=== PATIENT | female | born 1980 | race Caucasian/White ===

== ENCOUNTER → 2017-11-12 12:10 | Outpatient (CLI) | payer OTHER, SELFPAY ==
--- NOTE | 2017-11-12 12:14 | US_ITS ---
STUDY: ULTRASOUND OF THE FEMALE PELVIS - COMPLETE REASON FOR EXAM: Female, 36 years old. Abnormal bleeding. LMP: October 20, 2017 TECHNIQUE: Transabdominal and Transvaginal. TECHNICAL QUALITY: Adequate. COMPARISON: None. FINDINGS: The uterus is anteverted and is in a midline position. The uterus measures 8.2 x 4.2 x 3.2 cm. There is a Nabothian cyst of the cervix. The endometrium measures 2 mm in thickness, and is hyperechoic. There is no demonstrated endometrial mass. There is no demonstrated myometrial mass. I.U.D. - The patient does have an I.U.D., located within the endometrium The right ovary is visualized. The right ovary measures 2.4 x 1.6 x 1.4 cm. There is no right ovarian cyst or ovarian mass. There is no visualized right adnexal mass or complex lesion. There is normal arterial and normal venous vascularity. The left ovary is visualized. The left ovary measures 2.4 x 2.3 x 1.3 cm. There is 1.8 cm paraovarian cyst. There is no visualized left adnexal mass or complex lesion. There is normal arterial and normal venous vascularity. There is mild fluid in the cul-de-sac. The pre void volume of the bladder was 254 ml. US/Pelvic (Non ) IMPRESSION: Paraovarian cyst on the left. IUD in the uterus. Electronically Signed: William Currie MD at 18:16 EDT , Service support ,
--- NOTE | 2017-11-12 12:24 | US_ITS ---
STUDY: ULTRASOUND OF THE FEMALE PELVIS - COMPLETE REASON FOR EXAM: Female, 36 years old. Abnormal bleeding. LMP: October 20, 2017 TECHNIQUE: Transabdominal and Transvaginal. TECHNICAL QUALITY: Adequate. COMPARISON: None. FINDINGS: The uterus is anteverted and is in a midline position. The uterus measures 8.2 x 4.2 x 3.2 cm. There is a Nabothian cyst of the cervix. The endometrium measures 2 mm in thickness, and is hyperechoic. There is no demonstrated endometrial mass. There is no demonstrated myometrial mass. I.U.D. - The patient does have an I.U.D., located within the endometrium The right ovary is visualized. The right ovary measures 2.4 x 1.6 x 1.4 cm. There is no right ovarian cyst or ovarian mass. There is no visualized right adnexal mass or complex lesion. There is normal arterial and normal venous vascularity. The left ovary is visualized. The left ovary measures 2.4 x 2.3 x 1.3 cm. There is 1.8 cm paraovarian cyst. There is no visualized left adnexal mass or complex lesion. There is normal arterial and normal venous vascularity. There is mild fluid in the cul-de-sac. The pre void volume of the bladder was 254 ml. US/Transvaginal Non- IMPRESSION: Paraovarian cyst on the left. IUD in the uterus. Electronically Signed: William Currie MD at 18:16 EDT , Service support ,
[2017-11-16 13:36] LABS: HPV APTIMA, High Risk Negative (Negative)
== END ==
PROVIDERS: Referring Provider Obstetrics & Gynecology; Visit Provider Obstetrics & Gynecology
DX: N93.9 Abnormal uterine and vaginal bleeding, unspecified (principal); Z12.4 Encounter for screening for malignant neoplasm of cervix
CPT/HCPCS: 76830; 76856; 88175; 93976; G0145